=== PATIENT | female | born 1990 | race Caucasian/White ===

== ENCOUNTER 2019-04-18 00:57 | Emergency (ER) | payer OTHER ==
[2019-04-18 01:22] VITALS: BMI 20.1
--- NOTE | 2019-04-18 03:05 | PDOC ---
History of Present Illness - General Chief Complaint: Vaginal Bleeding Stated Complaint: CONGESTION,FEVER Time Seen by Provider: 04/18/19 03:05 History Source: Patient Exam Limitations: No Limitations - History of Present Illness Initial Comments: 28 year old female with no PMH, A1 presented to ED for cough, sinus congestion since Tuesday, as well as vaginal bleeding since yesterday. Pt reported that she developed fever of 100.5F, myalgias, nonproductive cough, nasal congestion on Tuesday, took Tylenol 500 mg wit minimal relief of symptoms. Pt reported her most concerning symptom is her nasal congestion as she feels it is difficult to breathe because of it. She reported she last had her menstrual period x2 weeks ago, so she does not believe today's vaginal bleeding is related to her menstrual cycle. ROS General: admitted to fever, chills, generalized weakness, body aches. HEENT: denied sore throat, rhinorrhea, ear pain. Cardiovascular: denied chest pain, palpitations, syncope, diaphoresis. Respiratory: denied shortness of breath, cough, sputum production, hemoptysis. Gastrointestinal: denied abdominal pain, nausea, vomiting, diarrhea, constipation, blood in stool. Genitourinary: denied dysuria, increased urinary frequency, hematuria, urinary incontinence, flank pain. Back: denied back pain. Musculoskeletal: denied joint pain, muscle pain, joint swelling. Neurological: denied headache, dizziness, numbness, tingling, weakness. Integumentary: denied rash, laceration, abrasion. Hematologic/Lymphatic: denied bruising or bleeding. PE Constitutional: Well-nourished, Well-developed, appearing stated age. HEENT: head is normocephalic, atraumatic. EOMI. PERRLA. nasal congestion noted. tenderness to maxillary sinus bilaterally. Neck: supple. Full ROM. Cardiovascular: regular heart rhythm. Normal S1 and S2. no murmurs. no pericardial friction rub. Respiratory: clear to auscultation bilaterally. no crackles, rhonchi or wheezing. no stridor. Gastrointestinal: soft, flat, nontender. normal bowel sounds. no rebound, guarding, or masses. Extremities: peripheral pulses intact and equal. no lower extremity edema noted. Neurological: CN 2-12 grossly intact. moves all four extremities. Psych: awake, alert, oriented x3. follows commands. answers questions appropriately. Pelvic: normal external genitalia. mild pooling of blood in vault. cervix visualized with blood exiting closed cervical os. no CMT. no adnexal tenderness bilaterally. Past History - Past Medical History Allergies/Adverse Reactions: Allergies Allergy/AdvReac Type Severity Reaction Status Date / Time No Known Allergies Allergy Verified 04/18/19 03:42 - Psycho Social/Smoking Cessation Hx Smoking History: Never smoked Hx Alcohol Use: No Drug/Substance Use Hx: No *Physical Exam - Vital Signs Last Vital Signs Temp Pulse Resp BP Pulse Ox 98.1 F 79 18 106/66 99 04/18/19 01:16 04/18/19 01:16 04/18/19 01:16 04/18/19 01:16 04/18/19 01:16 Medical Decision Making - Medical Decision Making 28 year old female with above PMH presented to ED for cough/sinus congestion since Tuesday and vaginal bleeding since yesterday. Initial Vital Signs Temp Pulse Resp BP Pulse Ox 98.1 F 79 18 106/66 99 04/18/19 01:16 04/18/19 01:16 04/18/19 01:16 04/18/19 01:16 04/18/19 01:16 Afebrile. No tachycardia. No tachypnea. No hypotension. No hypoxia on room air. Labs ordered: none Imaging ordered: [facility] Medications ordered: pseudoephedrine 30 mg PO once, motrin 800 mg PO once Laboratory Last Values Urine HCG, Qual Negative 04/18/19 03:09 04/18/19 03:43 [facility] report: Referring Physician: MARIBEL CORTEZ Comments: Reg Colon MD wrote on Apr 18, 2019 at 03:37 AM: Referring Physician: MARIBEL CORTEZ Patient Name: DESIREE NARANJO THIS IS A PRELIMINARY REPORT FROM [facility] DATE OF SERVICE: 2019-04-18 01:48:23 IMAGES: 27 EXAM: TRANSVAGINAL ULTRASOUND US and pelvic duplex HISTORY: Vaginal bleeding COMPARISON: None. FINDINGS: Transvaginal pelvic ultrasound:Uterus is anteverted and measures 8.3.centimeters in length. The endometrium is 4millimeters in thickness. There are no fibroids. The right ovary measures 3.0centimeters in length, appears normal and demonstrates normal flow. Left ovary measures 3.2centimeters in length, appears normal and demonstrates normal flow. There is no significant free fluid. Pelvic duplex: There is normal arterial and venous flow in both ovaries. IMPRESSION: Normal exam. THIS DOCUMENT HAS BEEN ELECTRONICALLY SIGNED Endy Colon MD 04/18/2019 03:35 MARITZA Mckeon Please call Imaging Claim Examiner [phone] ([phone]) with questions. Reg Colon MD Negative for , ectopic. Pt likely has viral sinusitis, will treat symptomatically. Pt discharged. Discharge - Discharge Information Problems reviewed: Yes Clinical Impression/Diagnosis: Sinusitis Condition: Improved Disposition: HOME - Admission No - Follow up/Referral Referrals: Shoaib Chau [Primary Care Provider] - - Patient Discharge Instructions Patient Printed Discharge Instructions: DI for Sinusitis Additional Instructions: You likely have a viral infection, which has now moved to your sinuses. This will resolve on its own. You do not use antibiotics to treat a virus. If your symptoms persist longer than 10 days, then you should be re-evaluated by your primary care doctor. Follow up with your primary care doctor within 3 days regarding your Emergency Room visit. Your care is not complete until you follow up. Take Tylenol 1000 mg every 8 hours as needed for pain/fever. Take Motrin 800 mg every 8 hours as needed for pain/fever. Tylenol and Motrin are not the same medication and can be used together safely. Motrin tends to work better for body aches. Buy Pseudoephedrine from behind the counter at the pharmacy, you do not need a prescription, but you must bring your photo ID. This medication willl help to open up your sinuses and allow you to breathe better. Ask the pharmacist for assistance. They also sell allergy medication that contains a decongestant - for example: Brenda-D. Please ask the pharmacist for assistance. Follow up with your OBGYN within 3 days regarding your vaginal bleeding. Your care is not complete until you follow up. Return to the Emergency Department for increasing pain, chest pain, shortness of breath, intractable vomiting, fever>103F with motrin/tylenol use, fever>5 days, increasing rash, neck stiffness, dizziness or any other new, worsening or concerning symptoms. CANADIAN TRANSLATION PROVIDED BY [employer] TRANSLATE Es probable que tenga david infeccin viral, que ahora se velez trasladado a myrtle senos paranasales. [place] se resolver por s solo. No usa antibiticos para tratar un virus. Si myrtle sntomas persisten por ms de 10 irving, entonces chao mdico de atencin primaria debe reevaluarlo. Harriet un seguimiento con chao mdico de atencin primaria dentro de los 3 irving con respecto a chao visita a la chelsea de emergencias. Chao atencin no estar completa hasta que realice el seguimiento. Westley Tylenol 1000 mg cada 8 horas segn sea necesario para el dolor / fiebre. [place]ley Motrin 800 mg cada 8 horas segn sea necesario para el dolor / fiebre. Tylenol y Motrin no son el mismo medicamento y se pueden usar juntos de manera lora. Motrin tiende a funcionar mejor para los radha corporales. Compre pseudoefedrina detrs del mostrador en la farmacia, no necesita david receta, ophelia debe traer chao identificacin con foto. Talia medicamento ayudar a abrir los senos paranasales y le permitir respirar mejor. Pdale ayuda al farmacutico. Tambin venden medicamentos para la alergia que contienen un descongestionante, por ejemplo: Brenda-D. Solicite ayuda al farmacutico. Harriet un seguimiento con chao OBGYN dentro de los 3 irving con respecto a chao sangrado vaginal. Chao atencin no estar completa hasta que realice el seguimiento. Regrese al Departamento de Emergencias para aumentar el dolor, dolor en el pecho , falta de aliento, vmitos intratables, fiebre> 103F con uso de motrin / tylenol, fiebre> 5 irving, aumento de erupcin cutnea, rigidez en el snow, mareos o cualquier otro sntoma nuevo, que empeora o preocupa. - Post Discharge Activity Work/Back to School Note: Back to Work
--- NOTE | 2019-04-18 03:10 | PDOC ---
Attending Attestation - Resident Resident Name: Vidhya Garcia - ED Attending Attestation I have performed the following: I have examined & evaluated the patient, The case was reviewed & discussed with the resident, I agree w/resident's findings & plan - HPI HPI: 04/18/19 03:34 see resident hpi - Physicial Exam PE: 04/18/19 03:34 see resident exam - Medical Decision Making 04/18/19 03:34 28-year-old female complaining of sinus pressure and congestion Patient also stated she has had vaginal bleeding, midcycle and ultrasound are negative Bleeding likely due to initiation of oral contraceptive pills Patient well-appearing and afebrile We will follow-up with primary care
[2019-04-18] MEDS ORDERED: IBUPROFEN 400 MG TABLET (FP) PO ONE (03:34)
[2019-04-18] MEDS ORDERED: PSEUDOEPHEDRINE HCL 60 MG TABLET PO ONE (03:34)
[2019-04-18] MEDS ORDERED: PSEUDOEPHEDRINE HCL 60 MG TABLET ONE ×2 (03:38→03:55)
[2019-04-18] MEDS ORDERED: IBUPROFEN 600 MG TABLET (FP) PO ONE (03:39)
[2019-04-18 04:32] VITALS: BP 110/67; PULSE 65; TEMP 98
== END 2019-04-18 04:33 | disposition home or self-care (01) ==
LOC: JER 00:57
DX: J01.90 Acute sinusitis, unspecified (principal); N93.8 Other specified abnormal uterine and vaginal bleeding
CPT/HCPCS: 76830-TC; 84703; 99284-25